=== PATIENT | male | born 1960 | race Caucasian/White ===

== ENCOUNTER 2017-06-14 10:37 | Emergency (ER) | payer OTHER ==
[~2017-06-14] VITALS: Ht 182.9 cm; Wt 77.1 kg
[~2017-06-14 10:37] MED LIST: Baclofen10 MG PO; Cyclobenzaprine5 MG PO; DIAZ10 PO; IBUP600 PO; IBUP800 PO; Naprosyn500 MG PO; Robaxin-750750 MG PO; Robaxin500 MG PO; Valium5 MG PO
[2017-06-14] MEDS ORDERED: CYCL10 PO (12:37)
== END 2017-06-14 11:05 | disposition left against medical advice (07) ==
LOC: ER 10:37
DX: Z53.21 Procedure and treatment not carried out due to patient leaving prior to being seen by health care provider (principal)

== ENCOUNTER 2017-06-14 11:49 | Emergency (ER) | payer OTHER ==
[~2017-06-14] VITALS: Ht 182.9 cm; Wt 77.1 kg
[2017-06-14] MEDS ORDERED: CYCL10 PO (12:37)
== END 2017-06-14 12:45 | disposition home or self-care (01) ==
LOC: ER 11:49
DX: G89.29 Other chronic pain (principal); M54.5 Low back pain; F17.200 Nicotine dependence, unspecified, uncomplicated; Z79.899 Other long term (current) drug therapy
CPT/HCPCS: 99282

== ENCOUNTER → 2019-01-22 | Outpatient (CLI) | payer SELFPAY ==
[~2019-01-22] MED LIST changes: +CYCL10 PO
== END ==
LOC: LAB SHORT 14:31 → LAB EV 14:31
DX: N50.819 Testicular pain, unspecified (principal)
CPT/HCPCS: 87077; 87086; 87186

== ENCOUNTER 2024-01-25 17:04 | Emergency (ER) | payer OTHER ==
[~2024-01-25] VITALS: Ht 182.9 cm; Wt 72.6 kg
[2024-01-25 17:29] VITALS: BP 136/82
[2024-01-25] MEDS ORDERED: Ketorolac Tromethamine 15mg Vial IM ONE (17:35)
[2024-01-25] MEDS ORDERED: LIDO700A20 TOP (18:06)
[2024-01-25] MEDS ORDERED: Robaxin750 MG PO (18:06)
[2024-01-25] MEDS ORDERED: Methocarbamol 500 MG Tab PO ONE (18:35)
[2024-01-25] MEDS ORDERED: Ketorolac Tromethamine 10 MG Tab PO ONE (18:35)
== END 2024-01-25 18:50 | disposition home or self-care (01) ==
LOC: ER 17:04
DX: M54.12 Radiculopathy, cervical region (principal); M48.02 Spinal stenosis, cervical region; F17.200 Nicotine dependence, unspecified, uncomplicated
CPT/HCPCS: 99283; A9270; J1885

== ENCOUNTER 2024-02-01 15:40 | Emergency (ER) | payer OTHER ==
[~2024-02-01] VITALS: Ht 182.9 cm; Wt 81.7 kg
[~2024-02-01 15:40] MED LIST changes: +LIDO700A20 TOP; +Robaxin750 MG PO
[2024-02-01 16:31] VITALS: BP 177/85
[2024-02-01] MEDS ORDERED: Ketorolac Tromethamine 10 MG Tab PO ONE (17:55)
== END 2024-02-01 18:20 | disposition home or self-care (01) ==
LOC: ER 15:40
DX: Z76.0 Encounter for issue of repeat prescription (principal); M54.41 Lumbago with sciatica, right side; F17.200 Nicotine dependence, unspecified, uncomplicated; Z88.8 Allergy status to other drugs, medicaments and biological substances
CPT/HCPCS: 99282; A9270